=== PATIENT | female | born 1955 | race African-American/Black ===

== ENCOUNTER → 2017-05-01 | Outpatient (CLI) | payer BC ==
--- NOTE | 2017-05-01 15:43 | CT ---
HISTORY: Radiculopathy, low back pain radiating down right leg Study: CT lumbar spine without contrast Comparison: None Technique: Multiple axial images of the lumbar spine without the administration of IV contrast. Sag ittal and coronal reformats were performed and reviewed. Dose reduction techniques including Automat ed Exposure Control (AEC) and adjustment of mA and kV were utilized. Findings: Alignment of the lumbar spine is maintained. No evidence for acute fracture or subluxation identifie d. Vertebral body heights are preserved. There is a mild broad-based disc bulge at L4-5. There is a moderate-sized broad-based disc bulge slightly asymmetric to the right at L5-S1 resulting in moderate right foraminal narrowing and mild left foraminal narrowing.Posterior elements appear intact. Incid ental note is made of sigmoid diverticulosis with mild pericolonic stranding in the proximal sigmoid colon suggesting acute focal diverticulitis. IMPRESSION: 1. Broad-based disc bulge slightly asymmetric to the right at L5-S1 resulting in moderate right and m ild left foraminal narrowing. 2. Incidental note of colonic diverticulosis with mild pericolonic stranding and thickening in the pr oximal sigmoid suggesting acute focal diverticulitis, correlate clinically. Reported By:
== END | disposition home or self-care (01) | DRG 74 ==
LOC: RAD 11:53
PROVIDERS: ATTEND Psychiatry & Neurology Neurology
DX: M54.10 Radiculopathy, site unspecified (principal); M51.27 Other intervertebral disc displacement, lumbosacral region; K57.90 Diverticulosis of intestine, part unspecified, without perforation or abscess without bleeding
CPT/HCPCS: 72131